=== PATIENT | female | born 1970 | race Caucasian/White ===

== ENCOUNTER 2018-05-29 10:08 | Emergency (ER) | payer OTHER ==
[~2018-05-29] VITALS: Ht 152.4 cm; Wt 113.4 kg
== END 2018-05-29 16:48 | disposition home or self-care (01) ==
LOC: EDBD 10:08 → ER 10:08
DX: R10.2 Pelvic and perineal pain (principal); K42.9 Umbilical hernia without obstruction or gangrene

== ENCOUNTER 2022-09-15 14:57 | Emergency (ER) | payer OTHER ==
[~2022-09-15] VITALS: Ht 170.2 cm; Wt 108.9 kg
== END 2022-09-15 18:22 | disposition home or self-care (01) ==
LOC: ER 14:57
DX: K59.00 Constipation, unspecified (principal)

== ENCOUNTER 2022-11-24 20:38 | Emergency (ER) | payer OTHER ==
[~2022-11-24] VITALS: Ht 165.1 cm; Wt 86.2 kg
[2022-11-24] MEDS ORDERED: SYNTHROID50 MCG PO (20:51)
== END 2022-11-24 23:25 | disposition home or self-care (01) ==
LOC: ER 20:38
DX: R00.2 Palpitations (principal)